=== PATIENT | female | born 1995 | race Caucasian/White ===

== ENCOUNTER 2017-07-31 17:48 | Emergency (ER) | payer BC ==
[~2017-07-31] VITALS: Ht 172.7 cm; Wt 69.0 kg
[2017-07-31 18:00] VITALS: Ht 172.7 cm; Wt 69.0 kg
[2017-07-31] MEDS ORDERED: SODIUM CHLORIDE 0.9% 1000ML 1,000 ML IV STA (18:17)
[2017-07-31] MEDS ORDERED: KETOROLAC TROMETHAMINE 30 MG/ML VIAL IV STA (18:17)
[2017-07-31] MEDS ORDERED: ONDANSETRON INJ 2 MG/ML 2 ML VIAL IV STA (18:17)
[2017-07-31] MEDS ORDERED: MoRPHine SULFATE 4 MG/ML 1 ML CARP\\VIAL IV STA ×2 (18:17→19:40)
[2017-07-31] MEDS ORDERED: BCPILLS PO (18:24)
[2017-07-31] MEDS ORDERED: CEFTRIAXONE SOD INJ 1 GM ADDVIAL IV STA (18:25)
[2017-07-31 18:29] LABS: BASO % 0.2 %; BASO ABS # 0.04 K/uL (0-0.2); EOS % 0.1 %; EOS ABS # 0.02 K/uL (0-0.5); HEMATOCRIT 37.8 % (37-47); HEMOGLOBIN 12.8 g/dL (12.0-16.0); IG# 0.06 K/uL (0.00-0.02); LYMPH % 11.4 %; LYMPH ABS # 2.22 K/uL (1.2-3.4); MEAN CELL VOLUME 88.7 fL (80-100); MEAN CORPUSCULAR HGB CONC 33.9 g/dl (32-36); MEAN PLATELET VOLUME 8.3 fL (7.4-10.4); MONO % 5.1 %; MONO ABS # 0.99 K/uL (0.11-0.59); NEUT % 82.9 %; NEUT ABS # 16.14 K/uL (1.4-6.5); PLATELET COUNT 359 K/uL (130-400); RED CELL DISTRIBUTION WIDTH SD 41.4 fL (36.4-46.3); WHITE BLOOD COUNT 19.47 K/uL (4.8-10.8)
[2017-07-31 18:53] LABS: CALCIUM 9.2 mg/dl (8.5-10.1); CREATININE 1.05 mg/dl (0.60-1.20); POTASSIUM 3.4 mmol/L (3.5-5.1)
--- NOTE | 2017-07-31 19:33 | DIAGNOSTIC IMAGING REPORT ---
(RENAL)RETROPERITON COMP CLINICAL HISTORY: 22 years-old Female presenting with RIGHT FLANK PAIN, DYSURIA. TECHNIQUE: Real-time grayscale and limited color Doppler ultrasound imaging of the kidneys and bladder was performed. COMPARISON: None. FINDINGS: Right kidney: Normal echogenicity of renal parenchyma. Right kidney measures 10.6 cm. Mild pelviectasis. Urothelial thickening. Mild dilatation of the proximal right ureter, which measures 4 mm in maximal AP dimension. No convincing evidence of calculus or mass. Left kidney: Normal echogenicity of renal parenchyma. Left kidney measures 10.1 cm. Minimal pelviectasis. No convincing evidence of calculus or mass. Bladder: Circumferential bladder wall thickening suggested though the bladder is incompletely distended. Bilateral ureteral jets not visualized. Other: None. IMPRESSION: 1. Mild right pelviectasis and right hydroureter. Mild right hydroureteronephrosis is not excluded. However, given the presence of urothelial thickening of the right urinary collecting system, this could represent cystitis with upper tract involvement. Alternatively, a right ureteral calculus may be present though no sonographic evidence of calculi visualized. Electronically signed by: Shantanu Simmons M.D. 07/31/2017 7:31 PM Dictated Date/Time: 07/31/2017 7:29 PM
[2017-07-31 20:01] VITALS: TEMP 36.6
--- NOTE | 2017-07-31 20:30 | DIAGNOSTIC IMAGING REPORT ---
ABD/PELVIS WITHOUT FOR STONE CLINICAL HISTORY: 22 years-old Female presenting with RIGHT FLANK PAIN. TECHNIQUE: Multidetector CT of the abdomen and pelvis was performed without the use of intravenous contrast. IV contrast: None. A dose lowering technique was used consistent with the principles of ALARA (as low as reasonably achievable). COMPARISON: None. CT DOSE (mGy.cm): The estimated cumulative dose is 565.91 mGy.cm. FINDINGS: Wafer Machine Operator topogram: Unremarkable. Lung bases: Lungs and pleural spaces clear. Normal heart size. No pericardial or pleural effusion. Liver: Normal morphology. Borderline hepatic steatosis. Biliary: No gross biliary ductal dilatation allowing for noncontrast technique. Normal gallbladder. Pancreas: Normal noncontrast appearance. Spleen: Normal noncontrast appearance. Adrenal glands: Normal noncontrast appearance. Kidneys and ureters: Mild right pelviectasis with right urothelial thickening. Urothelial thickening is also evident in the mildly dilated right ureter. No obstructing calculus is evident. No renal calculi. The left renal collecting system and left ureter are normal. Bladder: Circumferential bladder wall thickening. Pelvic organs: Normal noncontrast appearance. Bowel: Normal appendix. No bowel obstruction. Peritoneal cavity: No free fluid or intraperitoneal gas. Lymph nodes: No gross lymphadenopathy allowing for noncontrast technique. Vasculature: Normal noncontrast appearance. Abdominal wall: Normal. Musculoskeletal: Normal. IMPRESSION: 1. Circumferential bladder wall thickening with urothelial thickening in the right renal collecting system and right ureter compatible with cystitis with upper tract involvement. Evaluation for pyelonephritis is limited in the absence of intravenous contrast. No evidence of renal or ureteral calculi. Electronically signed by: Shantanu Simmons M.D. 07/31/2017 8:28 PM Dictated Date/Time: 07/31/2017 8:24 PM
[2017-07-31] MEDS ORDERED: ONDA4TAB10 SL (20:50)
[2017-07-31] MEDS ORDERED: OXYC1TAB3 PO (20:50)
[2017-07-31] MEDS ORDERED: CIPR-255 PO (20:50)
--- NOTE | 2017-07-31 20:51 | EMERGENCY ROOM VISIT NOTE ---
History First contact with patient: 18:04 Chief Complaint: FLANK PAIN Stated Complaint: SHARP PAIN IN LOWER LEFT SIDE/BACK History of Present Illness Patient is an otherwise healthy 22-year-old female who presents emergency department for evaluation of right flank pain 2 days. Patient relates that she had a dull pain in her right mid back yesterday, but states that it was tolerable. It has progressively worsened and today becomes sharp and unbearable. She tried increasing her fluids yesterday and taking ibuprofen, which did not help. She presently rates her pain an 8/10. She states that is located in the right flank and does not radiate. She reports feeling nauseous today with the increased pain, but has not vomited. She notes feeling chilled, but has not felt feverish and did not check her temperature with a thermometer. She has never had pain similar to this previously. About a week ago, she had some burning with urination and thought that she might have had a UTI, but she states that she drank a lot of water, and her symptoms resolved. She denies any abnormal vaginal discharge or concerns for any sexually transmitted infections. She is sexually active. No significant gynecologic history. Last menstrual period was 1-1/2 weeks ago, she is on an oral contraceptive. Review of Systems Review of systems as per HPI. All other systems reviewed were negative. 10 systems reviewed. Past Medical/Surgical History Medical Problems: (1) No Known Active Medical Problems Electronic medical records are reviewed and summarized as above/below. See Problem List. Social History Smoking Status: Never Smoker Housing Status: lives with roommate Occupation Status: [employer] student Current/Historical Medications Scheduled Control Pills ( Control Pills), 1 TAB PO DAILY Ciprofloxacin Hcl (Cipro), 500 MG PO BID Scheduled PRN Ondasetron Odt (Zofran Odt), 4 MG SL Q6H PRN for Nausea or Vomiting Oxycodone Immediate Rel Tab (Roxicodone Ir), 1-2 TAB PO Q4H PRN for Severe Pain Physical Exam Vital Signs Date Time Temp Pulse Resp B/P (MAP) Pulse Ox O2 Delivery O2 Flow Rate FiO2 07/31/17 21:19 71 16 131/80 100 07/31/17 20:01 36.6 07/31/17 20:01 36.6 70 16 115/76 100 Room Air 07/31/17 18:00 36.6 111 16 163/97 99 Room Air Physical Exam CONSTITUTIONAL: Patient is a tearful 22-year-old white female who is awake and alert and in moderate distress due to her stated complaint. EYES: Pupils equal, round, reactive to light and accommodation. EOMs intact without nystagmus. Sclera are anicteric. ENT: Tympanic membranes intact, with normal landmarks. External canals are clear. Oral and nasopharynx are clear. Mucous membranes are moist, no lesions , tongue and gums appear normal. CARDIOVASCULAR: Regular rate and rhythm, with normal S1 and S2, no murmur or gallop or rub is heard. No carotid bruits auscultated. No JVD. Peripheral pulses easily palpable. RESPIRATORY: Breath sounds equal and clear to auscultation without wheezes, rales, or rhonchi heard. Full and equal chest expansion without accessory muscle use or retractions. ABDOMEN: Bowel sounds are present. Abdomen is soft, nontender, nondistended. There is no pain in the right lower quadrant over McBurney's point. Negative Sena sign. Positive right CVA tenderness. INTEGUMENTARY: No lesions or rash, normal skin turgor. LYMPH: No lymphadenopathy. Medical Decision & Procedures ER Provider Diagnostic Interpretation: (RENAL)RETROPERITON COMP CLINICAL HISTORY: 22 years-old Female presenting with RIGHT FLANK PAIN, DYSURIA. TECHNIQUE: Real-time grayscale and limited color Doppler ultrasound imaging of the kidneys and bladder was performed. COMPARISON: None. FINDINGS: Right kidney: Normal echogenicity of renal parenchyma. Right kidney measures 10.6 cm. Mild pelviectasis. Urothelial thickening. Mild dilatation of the proximal right ureter, which measures 4 mm in maximal AP dimension. No convincing evidence of calculus or mass. Left kidney: Normal echogenicity of renal parenchyma. Left kidney measures 10.1 cm. Minimal pelviectasis. No convincing evidence of calculus or mass. Bladder: Circumferential bladder wall thickening suggested though the bladder is incompletely distended. Bilateral ureteral jets not visualized. Other: None. IMPRESSION: 1. Mild right pelviectasis and right hydroureter. Mild right hydroureteronephrosis is not excluded. However, given the presence of urothelial thickening of the right urinary collecting system, this could represent cystitis with upper tract involvement. Alternatively, a right ureteral calculus may be present though no sonographic evidence of calculi visualized. ABD/PELVIS WITHOUT FOR STONE CLINICAL HISTORY: 22 years-old Female presenting with RIGHT FLANK PAIN. TECHNIQUE: Multidetector CT of the abdomen and pelvis was performed without the use of intravenous contrast. IV contrast: None. A dose lowering technique was used consistent with the principles of ALARA (as low as reasonably achievable). COMPARISON: None. CT DOSE (mGy.cm): The estimated cumulative dose is 565.91 mGy.cm. FINDINGS: Pediatric Nurse Practitioner topogram: Unremarkable. Lung bases: Lungs and pleural spaces clear. Normal heart size. No pericardial or pleural effusion. Liver: Normal morphology. Borderline hepatic steatosis. Biliary: No gross biliary ductal dilatation allowing for noncontrast technique. Normal gallbladder. Pancreas: Normal noncontrast appearance. Spleen: Normal noncontrast appearance. Adrenal glands: Normal noncontrast appearance. Kidneys and ureters: Mild right pelviectasis with right urothelial thickening. Urothelial thickening is also evident in the mildly dilated right ureter. No obstructing calculus is evident. No renal calculi. The left renal collecting system and left ureter are normal. Bladder: Circumferential bladder wall thickening. Pelvic organs: Normal noncontrast appearance. Bowel: Normal appendix. No bowel obstruction. Peritoneal cavity: No free fluid or intraperitoneal gas. Lymph nodes: No gross lymphadenopathy allowing for noncontrast technique. Vasculature: Normal noncontrast appearance. Abdominal wall: Normal. Musculoskeletal: Normal. IMPRESSION: 1. Circumferential bladder wall thickening with urothelial thickening in the right renal collecting system and right ureter compatible with cystitis with upper tract involvement. Evaluation for pyelonephritis is limited in the absence of intravenous contrast. No evidence of renal or ureteral calculi. Laboratory Results 07/31/17 18:18 Red Blood Count 4.26, Mean Corpuscular Volume 88.7, Mean Corpuscular Hemoglobin 30.0, Mean Corpuscular Hemoglobin Concent 33.9, Mean Platelet Volume 8.3, Neutrophils (%) (Auto) 82.9, Lymphocytes (%) (Auto) 11.4, Monocytes (%) (Auto) 5.1, Eosinophils (%) (Auto) 0.1, Basophils (%) (Auto) 0.2, Neutrophils # (Auto) 16.14, Lymphocytes # (Auto) 2.22, Monocytes # (Auto) 0.99, Eosinophils # (Auto) 0.02, Basophils # (Auto) 0.04 4/7/18 18:18 Test 07/31/17 18:10 07/31/17 18:18 Urine Color YELLOW Urine Appearance TURBID (CLEAR) Urine pH 6.0 (4.5-7.5) Urine Specific [place] 1.016 (1.000-1.030) Urine Protein 3+ (NEG) Urine Glucose (UA) NEG (NEG) Urine Ketones NEG (NEG) Urine Occult Blood 3+ (NEG) Urine Nitrite POS (NEG) Urine Bilirubin NEG (NEG) Urine Urobilinogen NEG (NEG) Urine Leukocyte Esterase LARGE (NEG) Urine WBC (Auto) >30 /hpf (0-5) Urine RBC (Auto) 10-30 /hpf (0-4) Urine Hyaline Casts (Auto) 1-5 /lpf (0-5) Urine Epithelial Cells (Auto) >30 /lpf (0-5) Urine Bacteria (Auto) 2+ (NEG) Urine Pathogenic Casts /lpf (0) Urine Yeast (Auto) (NONE PRSENT) Urine Test NEG (NEG) White Blood Count 19.47 K/uL (4.8-10.8) Red Blood Count 4.26 M/uL (4.2-5.4) Hemoglobin 12.8 g/dL (12.0-16.0) Hematocrit 37.8 % (37-47) Mean Corpuscular Volume 88.7 fL (80-100) Mean Corpuscular Hemoglobin 30.0 pg (25-34) Mean Corpuscular Hemoglobin Concent 33.9 g/dl (32-36) Platelet Count 359 K/uL (130-400) Mean Platelet Volume 8.3 fL (7.4-10.4) Neutrophils (%) (Auto) 82.9 % Lymphocytes (%) (Auto) 11.4 % Monocytes (%) (Auto) 5.1 % Eosinophils (%) (Auto) 0.1 % Basophils (%) (Auto) 0.2 % Neutrophils # (Auto) 16.14 K/uL (1.4-6.5) Lymphocytes # (Auto) 2.22 K/uL (1.2-3.4) Monocytes # (Auto) 0.99 K/uL (0.11-0.59) Eosinophils # (Auto) 0.02 K/uL (0-0.5) Basophils # (Auto) 0.04 K/uL (0-0.2) RDW Standard Deviation 41.4 fL (36.4-46.3) RDW Coefficient of Variation 13.0 % (11.5-14.5) Immature Granulocyte % (Auto) 0.3 % Immature Granulocyte # (Auto) 0.06 K/uL (0.00-0.02) Anion Gap 10.0 mmol/L (3-11) Est Creatinine Clear Calc Drug Dose 85.5 ml/min Estimated GFR () 87.9 Estimated GFR (Non- 75.9 BUN/Creatinine Ratio 15.1 (10-20) Calcium Level 9.2 mg/dl (8.5-10.1) Medications Administered Medications (Trade) Dose Ordered Sig/Mariya Route Start Time Stop Time Status Last Admin Dose Admin Ketorolac Tromethamine (Toradol Inj) 30 mg NOW STAT IV 07/31/17 18:17 07/31/17 18:19 DC 07/31/17 18:27 30 MG Ondansetron HCl (Zofran Inj) 4 mg NOW STAT IV 07/31/17 18:17 07/31/17 18:19 DC 07/31/17 18:28 4 MG Morphine Sulfate (MoRPHine SULFATE INJ) 4 mg NOW STAT IV 07/31/17 18:17 07/31/17 18:19 DC 07/31/17 18:28 4 MG Sodium Chloride 1,000 ml @ 999 mls/hr Q1H1M STAT IV 07/31/17 18:17 07/31/17 19:17 DC 07/31/17 18:29 999 MLS/HR Ceftriaxone Sodium (Rocephin Inj) 1 gm NOW STAT IV 07/31/17 18:25 07/31/17 18:26 DC 07/31/17 18:32 1 GM Morphine Sulfate (MoRPHine SULFATE INJ) 4 mg NOW STAT IV 07/31/17 19:40 07/31/17 19:42 DC 07/31/17 20:00 4 MG Oxycodone HCl (Roxicodone Immediate Rel 5MG Home Pack) 1 homepack UD ONCE PO 07/31/17 21:00 07/31/17 21:01 DC 07/31/17 21:00 1 HOMEPACK Ondansetron HCl (ZOFRAN ODT 4MG Home Pack) 1 homepack UD ONCE PO 07/31/17 21:00 07/31/17 21:01 DC 07/31/17 21:00 1 HOMEPACK Ciprofloxacin (Cipro 500MG Home Pack) 1 homepack UD ONCE PO 07/31/17 21:00 07/31/17 21:01 DC 07/31/17 21:00 1 HOMEPACK ED Course The patient was seen and assessed as above. She has no old records at this facility. IV lock was initiated and laboratory studies were collected. She was able to provide a urine sample which was dipped, and was positive for blood , leukocytes and nitrates. Urine test was negative. Urine was sent for microscopy and culture, CBC with differential and BMP were drawn. She was hydrated with normal saline solution, medicated with Toradol 30 mg IV, morphine 4 mg IV 2 and Zofran 4 mg IV and given 1 g of Rocephin IV empirically. Retroperitoneal ultrasound was obtained. Laboratory studies noted a 19,500 white count with left shift and bandemia. H& H is normal. No significant electrolyte imbalance noted. Renal function is normal. Urine microscopy notes 3+ occult blood, positive nitrates, large amount of leuk esterase and 2+ bacteria. Renal ultrasound noted mild right pelviectasis and right hydroureter, mild right hydroureteronephrosis is not excluded, however given the presence of the urothelial thickening of the right urinary collecting system this could represent cystitis with upper tract involvement, alternatively a right ureteral calculus may present though not sonographically visualized. All laboratory and diagnostic imaging studies were reviewed with the patient, CT scan was ordered to exclude kidney stone. CT gonad circumferential bladder wall thickening with urothelial thickening of the right renal collecting system and right ureter compatible with cystitis with upper tract involvement, pyelonephritis was limited in the absence of IV contrast, no renal or ureteral calculi were noted. CT scan findings were discussed with the patient. All laboratory and diagnostic imaging studies were reviewed with attending physician. The patient reported significant improvement in her pain with the IV medications. She was hypertensive and tachycardic upon arrival in the emergency department, I suspect this is likely due to pain, as pain improved, vital signs normalized. She remained afebrile in the emergency department. Treatment options were discussed with the patient. At this point, I do feel that she is a reasonable candidate for outpatient management, and she is in agreement with this. She will be placed on Cipro pending the urine culture. She was given oxycodone and Zofran to use for pain. She was advised to monitor her temperature closely and document any fevers. Return to the emergency department for fevers, uncontrolled pain or vomiting. The patient expressed understanding of this and was agreeable. She was discharged home with a female friend in stable condition. She rated her pain a 1/10 at discharge. Differential diagnoses entertained included UTI, pyelonephritis, renal colic, appendicitis, ovarian cyst, ovarian torsion, PID, tubo-ovarian abscess, , ruptured ectopic , shingles, muscle strain, intercostal neuritis, among others. Medical Decision See ED Course. [place] Drug Monitoring Program Search Results: patient reviewed within database, no issues identified Medication Reconcilliation Current Medication List: was personally reviewed by me Blood Pressure Screening Patient's blood pressure: Elevated blood pressure Blood pressure disposition: Elevated BP felt to be situational Impression Primary Impression: Pyelonephritis Additional Impression: Right flank pain Departure Information Prescriptions Oxycodone Immediate Rel Tab (ROXICODONE IR) 5 Mg Tab 1-2 TAB PO Q4H Y for Severe Pain, #25 TAB For Initial Treatment Prov: Vesta Chisholm PA 07/31/17 Ondasetron Odt (ZOFRAN ODT) 4 Mg Tab 4 MG SL Q6H Y for Nausea or Vomiting, #20 TAB Prov: Vesta Chisholm PA 07/31/17 Ciprofloxacin Hcl (CIPRO) 500 Mg Tab 500 MG PO BID, #20 TAB Prov: Vesta Chisholm PA 07/31/17 Referrals No Doctor, Assigned (PCP) Patient Instructions My [facility] Additional Instructions DO NOT drive, drink alcohol, operate machinery, or perform dangerous activities today. You were given medications in the ER that can affect your ability to safely function or operate a vehicle. Ciprofloxacin(Cipro) 500mg: Take one pill twice daily for 7 days for your urine infection. All antibiotics can cause diarrhea. If this occurs and you feel worse or it does not resolve in 1-2 days follow up with your doctor or return to the Emergency Department as this could be signs of serious underlying problems. If you experience any pain in your tendons/joints or any tendon injury return to the ER for re-evaluation. Any medication can cause an allergic reaction, stop the pills immediately and return to the ER for rash, hives, breathing difficulties, or swelling. Zofran(odansetron) tablets 4mg: Take one and allow it to dissolve in your mouth every four hours as needed for nausea or vomiting. Oxycodone (OxyIR) 5mg: Take 1-2 pills every four hours as needed for breakthrough pain. Avoid alcohol, operating machinery or dangerous equipment, working on ladders or roofs, DRIVING, making important decisions, or situations where being under the influence may be dangerous. It is recommended to use an [id number] stool softener such as Colace, 100mg twice daily while taking this medication to avoid constipation. Ibuprofen(Motrin, Advil) may be used for fever or pain. Use 600mg every six hours as needed. Take with food. Avoid using more than 2400mg in a 24 hour period. Do not use 2400mg per day for more than three consecutive days without physician direction. Prolonged inappropriate use can lead to stomach upset or ulcers. This is available over the counter and typically comes in 200mg tablets. (AND/OR) Acetaminophen(Tylenol) may be used for fever or pain. Use 1000mg every eight hours as needed. Avoid using more than 3000mg in a 24 hour period. This is available over the counter. Read all the package inserts or medication information paperwork provided. If you have any questions or concerns call your primary provider, pharmacist or the ER for assistance. Rest and drink plenty of fluids as tolerated. Slow sips of water or sports drinks are recommended instead of large amounts all at once. Continue current medications. Once your stomach is settled start with a clear liquid diet (jello, soup broth, etc.) and then advance as tolerated. You should avoid full, heavy meals for about 24 hrs from the time your symptoms resolved. Return to the ER immediately for worsening or persistent abdominal/back pain, vomiting, fevers, worsening of your condition, or as needed. Follow up S as you have scheduled on Wednesday for a recheck of the current condition Problem Qualifiers
[2017-07-31] MEDS ORDERED: ONDANSETRON HOME PACK 4MG OD TAB PO ONE (21:00)
[2017-07-31] MEDS ORDERED: OXYCODONE IR HOME PACK PO ONE (21:00)
[2017-07-31] MEDS ORDERED: CIPROFLOXACIN 500MG HOME PACK PO ONE (21:00)
[2017-07-31 21:19] VITALS: BP 131/80; PULSE 71; O2SAT 100
--- NOTE | 2017-08-02 11:09 | Pharmacy Progress Note ---
ED Pharmacist Culture FollowUp Date of Service: Aug 02, 2017. Urine cx is growing e coli, pansensitive. She was diagnosed with pyelonephritis in the ER. Patient was discharged on Cipro 500mg IV BID x 10 days which should cover this organism.
== END 2017-07-31 21:20 | disposition home or self-care (01) ==
LOC: C.EDB 17:49
DX: N12 Tubulo-interstitial nephritis, not specified as acute or chronic (principal); R10.84 Generalized abdominal pain